=== PATIENT | female | born 1980 | race African-American/Black ===

== ENCOUNTER 2017-09-05 15:01 | Emergency (ER) | payer MEDICAID ==
[~2017-09-05] VITALS: Ht 162.6 cm; Wt 83.0 kg
[2017-09-05] MEDS ORDERED: ADVAIR 100-501 EACH INH (15:44)
[2017-09-05] MEDS ORDERED: SINGULAIR 10 MG10 M1 PO (15:45)
[2017-09-05] MEDS ORDERED: NASAL ALLERGY16.9 ML NASAL (15:46)
[2017-09-05] MEDS ORDERED: ZYRTEC10 M5 PO (15:46)
[2017-09-05] MEDS ORDERED: MULTI VITAMIN1 EACH PO (15:47)
[2017-09-05] MEDS ORDERED: NAPROSYN500 MG PO (15:52)
[2017-09-05 16:00] VITALS: BP 137/70
== END 2017-09-05 16:22 | disposition home or self-care (01) ==
LOC: M.ERS 15:01
DX: M70.861 Other soft tissue disorders related to use, overuse and pressure, right lower leg (principal); I10 Essential (primary) hypertension; Z88.5 Allergy status to narcotic agent; Y93.89 Activity, other specified